=== PATIENT | male | born 1975 | race Caucasian/White ===

== ENCOUNTER 2017-07-26 10:06 | Emergency (ER) | payer SELFPAY ==
[~2017-07-26] VITALS: Ht 177.8 cm; Wt 90.0 kg
[2017-07-26 11:17] VITALS: BP 155/89
[2017-07-26] MEDS ORDERED: TRAMADOL HYDROC50 MG PO (11:17)
[2017-07-26] MEDS ORDERED: ASPERCREME LIDOCA41 TOP (11:17)
[2017-07-26] MEDS ORDERED: PREDNISONE50 MG PO (11:19)
== END 2017-07-26 11:30 | disposition home or self-care (01) | DRG 552 ==
LOC: ED 10:06
DX: M54.41 Lumbago with sciatica, right side (principal)